=== PATIENT | female | born 1945 | race Caucasian/White ===

== ENCOUNTER 2020-12-27 12:00 | Day surgery (SDC) | payer MEDICARE, OTHER ==
[~2020-12-27 12:00] MED LIST: MELOXICAM15 MG PO; NORCO 5-325 TA1 EACH PO; TYLENOL EXTRA500 MG PO
--- NOTE | 2020-12-27 16:48 | NUR ---
12/27/20 1648 Germaine Oneill 1640 PATIENT ARRIVES TO PACU SLEEPING. AWAKENS WITH VERBAL STIMULI. RESP EVEN AND UNLABORED, MASK AT 6 LITERS. DENIES PAIN OR NAUSEA. PASSING GAS.
--- NOTE | 2020-12-29 13:48 | OR ---
[facility] [address], [place] [address] Signed DATE OF OPERATION: 12/27/2020 SURGEON: Aidan Grijalva MD PREOPERATIVE DIAGNOSES: 1. Positive Cologuard test. 2. Known diverticulosis. POSTOPERATIVE DIAGNOSES: 1. Extensive diverticular changes of sigmoid and left colon. 2. Small polyp at 35 cm (excised). PROCEDURE: Total colonoscopy to cecum with cold morcellation polypectomy x1. ANESTHESIA: Intravenous sedation, propofol infusion, Anson Quiles CRNA INDICATIONS: This 75-year-old white woman is a patient of Dr. Gamaliel Pires. She is noted to have extensive diverticulosis in 2008. She has recently undergone a Cologuard test which was positive. She has no blood per rectum, diarrhea, or constipation and no known family history of colon cancer. She is admitted at this time to undergo colonoscopy. She understands the risks of bleeding, infection, perforation, and so on. FINDINGS: The prep was good except in the area of the sigmoid where there was retained stool and many of the diverticula. Extensive diverticular changes were noted in the sigmoid and left colon had extensive angulation deformity. The procedure was prolonged, complicated, and difficult on the basis of this but was accomplished safely and the scope was passed ultimately to the cecum. More proximal colon was entirely normal and well prepped. Other than the diverticulosis, was a small polyp at 35 cm which was excised with cold morcellation technique completely. There were no other findings of concern. DESCRIPTION OF PROCEDURE: The patient was brought to the endoscopy suite and placed in lateral decubitus position, given intravenous sedation to the point of slurred speech and nystagmus. Digital rectal examination was normal. Propofol infusional technique was used based on prior history of high use of fentanyl and Versed. The colonoscope was manipulated into the sigmoid Electronically Signed By: AIDAN GRIJALVA MD 12/29/20 1348 PATIENT NAME: RENÉ GARCIA OPERATIVE REPORT DATE OF : 43 REPORT #: [id number] PHYSICIAN: AIDAN GRIJALVA MD PCP: GAMALIEL PIRES DO REPORT IS CONFIDENTIAL AND NOT TO BE RELEASED WITHOUT AUTHORIZATION [facility] [address], [place] [address] Signed where numerous large and small diverticula were noted. Various maneuvers were made and with considerable patient's effort, ultimately the sigmoid was passed. This was rather prolonged and complicated portion of the procedure. Once past the sigmoid, more proximal colon had a few scattered diverticula, but the scope was passed to the cecum without much problem after that. The ileocecal valve, appendiceal orifice were normal. Scope was withdrawn from that point, very clear and thorough evaluation undertaken to assess for polyps considering the positive COVID test. Once the scope was withdrawn back to the left colon, diverticula were once again noted and with extreme care examination undertaken. Ultimately a small polyp was noted at 35 cm which was excised with cold morcellation technique. Further withdrawal of scope showed more diverticula of the sigmoid and rectosigmoid area. Retroflexed view of the rectum was normal. Scope was removed and the patient was taken to the recovery room in good condition. CONCLUSION DIAGNOSIS: Polyp x1 at 35 cm, small and innocuous appearing. Completely excised. Extensive diverticular changes sigmoid and left colon. PLAN: Recommend repeat colonoscopy in 5 years if this polyp proves to be adenoma, 10 years if hyperplastic. In any case, propofol infusional technique should be used as it was extremely valuable on this occasion. MD AARTI Valle/SANTOSL /[id number] cc: Gamaliel Pires DO Copies: GAMALIEL PIRES DO ~ Electronically Signed By: AIDAN GRIJALVA MD 12/29/20 1348 PATIENT NAME: RENÉ GARCIA OPERATIVE REPORT DATE OF : 43 REPORT #: [id number] PHYSICIAN: AIDAN GRIJALVA MD PCP: GAMALIEL PIRES DO REPORT IS CONFIDENTIAL AND NOT TO BE RELEASED WITHOUT AUTHORIZATION
--- NOTE | 2021-01-01 11:11 | PATH ---
[facility] [address], [place] [address] Signed SPECIMEN(S): A SIGMOID POLYP AT 35 CM SPECIMEN SOURCE: A. SIGMOID POLYP AT 35 CM CLINICAL HISTORY: Positive Cologuard, diverticulosis. Post: Polyp x 1, diverticulosis MICROSCOPIC DESCRIPTION: Histologic sections of all submitted blocks are examined by light microscopy. These findings, together with the gross examination, support the pathologic diagnosis. FINAL PATHOLOGIC DIAGNOSIS: Colon, sigmoid, polyp at 35 cm, polypectomy: - Fragments of tubular adenoma. - Negative for high-grade dysplasia or malignancy. NAL:cml:C2NR GROSS DESCRIPTION: The specimen, labeled "KT," and designated on the requisition "sigmoid colon polypectomy at 35 cm," is received in formalin and consists of multiple fragments of pink-burrell tissue (0.5 x 0.4 x 0.2 cm in aggregate). The specimen is submitted entirely in cassette A1. AC (under the direct supervision of a pathologist The Gross Description was prepared using a voice recognition system. The report was reviewed for accuracy; however, sound-alike word errors, addition and/or deletions may occur. If there is any question about this report, please contact Client Services. PERFORMING LABORATORY: The technical component was performed by [facility], [address] [place] [id number] ([employer] Technician: Loly Zeng MD; CLIA# [id number]). Professional interpretation was performed by [facility], [address] [address] (CLIA# [id number]). Diagnostician: Jaki Souza MD Pathologist Electronically Signed 01/01/2021 PATIENT NAME: RENÉ GARCIA PATHOLOGY DATE OF : 43 REPORT #: [id number] PHYSICIAN: [facility] PCP: ARTURO PIRES DO REPORT IS CONFIDENTIAL AND NOT TO BE RELEASED WITHOUT AUTHORIZATION [address] [address] Signed Copies: ~ PATIENT NAME: RENÉ GARCIA PATHOLOGY DATE OF : 43 REPORT #: [id number] PHYSICIAN: [facility] PCP: ARTURO PIRES DO REPORT IS CONFIDENTIAL AND NOT TO BE RELEASED WITHOUT AUTHORIZATION
== END 2020-12-27 17:15 | disposition home or self-care (01) ==
LOC: OPS 12:00 → DS 12:05 → OPS 13:00 → DS 13:00 → OPS 17:15
PROVIDERS: ATTEND Surgery
PROC: 0DBG8ZX Excision of Left Large Intestine, Via Natural or Artificial Opening Endoscopic, Diagnostic (ICD-10-PCS; principal; 2020-12-27 13:00)
DX: D12.5 Benign neoplasm of sigmoid colon (principal); R19.5 Other fecal abnormalities; K57.30 Diverticulosis of large intestine without perforation or abscess without bleeding; Z88.0 Allergy status to penicillin; Z88.2 Allergy status to sulfonamides
CPT/HCPCS: 99153; G0500; J2001; J2250; J2704; J7121